=== PATIENT | female | born 1985 | race Caucasian/White ===

== ENCOUNTER 2023-10-23 06:11 | Day surgery (SDC) | payer OTHER, SELFPAY ==
[2023-10-23 06:22] VITALS: BP 102/74; PULSE 65; RESP 16; TEMP 36.8; O2SAT 99
[2023-10-23] MEDS: Acetaminophen 500 MG TAB 1000 MG PO (06:36)
[2023-10-23] MEDS: Lactated Ringers 1,000 ML 80 ML IV (06:58)
--- NOTE | 2023-10-23 07:01 | W.ANESPRE ---
General Info Date of Service Date Performed: 10/23/23 Height: 5 ft 6 in Weight: 65.7 kg Body Mass Index (BMI): 23.3 Surgical Procedure: Operation Date: 10/23/23 07:40 Proposed Procedure Side Surgeon p Wrist ECTR Left Seun Alfaro MD Pre-Op Diagnosis Post-Op Diagnosis (1) Left hand paresthesia (2) Left carpal tunnel syndrome Meds Allergies and Home Medications Allergies Allergy/AdvReac Type Severity Reaction Status Date / Time Sulfa (Sulfonamide Allergy Severe Anaphylaxis Verified 10/23/23 06:21 Antibiotics) clonazepam Allergy Unknown Other (See Verified 10/23/23 06:21 Comment) darunavir Allergy Unknown Other (See Verified 10/23/23 06:21 Comment) ondansetron [From Zofran] Allergy Unknown Other (See Verified 10/23/23 06:21 Comment) Home Medication Medication Instructions Recorded acetaminophen 325 mg tablet 325 mg PO ONCE PRN 04/24/23 ibuprofen 400 mg tablet 400 mg PO Q8H PRN 04/24/23 magnesium oxide 420 mg tablet 420 mg PO DAILY 04/24/23 multivitamin 1 tab PO DAILY 04/24/23 baclofen 10 mg tablet 10 mg PO BID PRN 05/21/23 Current Visit Medications: Current Medications Generic Name Dose Route Start Last Admin Trade Name Freq PRN Reason Stop Dose Admin Acetaminophen 1,000 mg 10/23/23 06:00 10/23/23 06:36 Acetaminophen 500 Mg Tab PO 11/21/23 23:59 1,000 mg PREOP GRACE Administration Ringer's Solution 1,000 mls @ 80 mls/hr 10/23/23 06:00 10/23/23 06:58 IV 11/21/23 23:59 80 mls/hr INFUSION GRACE Administration Cefazolin Sodium/Dextrose 2 gm in 50 mls @ 100 mls/hr 10/23/23 06:00 Ancef Duplex IVPB 11/21/23 23:59 PREOP GRACE IV Miscellaneous Supplies 1 each 10/23/23 06:00 Iv Access IV 11/21/23 23:59 DIRECTED GRACE Sodium Chloride 0 ml 10/23/23 06:00 Normal Saline Flush 10 Ml Syr IV 11/21/23 23:59 PRN PRN Sodium Chloride 0 ml 10/23/23 06:00 Normal Saline 10 Ml Vial IJ 11/21/23 23:59 DIRECTED PRN Sterile Water 0 ml 10/23/23 06:00 Water,Injection,Sterile 10 Ml Vial IJ 11/21/23 23:59 DIRECTED PRN PFSH Active Problems Active Problems: Problem Status Onset Code Left carpal tunnel syndrome G56.02 Left hand paresthesia R20.2 H/O breast augmentation Z98.82 Hx of appendectomy Z90.49 H/O: hysterectomy Z90.710 H/O partial nephrectomy Z90.5 History of carpal tunnel surgery of right wrist Z98.890 Medical History Medical History Comments:: Pt. states she typically runs a little low on BP and Surgical History Surgical History (Updated 10/22/23 @ 09:53 by Quoc Martin) History of carpal tunnel repair Tobacco Smoking/Tobacco Use Status: Former Tobacco Use Alcohol Alcohol Intake: current Alcohol intake frequency: a few times a week Substance Use Substance use: Never Substance use type: does not use Vital Signs and Lab Results Vital Signs Most Recent Vital Signs in EMR: Most Recent Vital Signs Temp Pulse Resp BP Pulse Ox 36.8 C 65 16 102/74 99 10/23/23 06:22 10/23/23 06:22 10/23/23 06:22 10/23/23 06:22 10/23/23 06:22 Lab Results Blood Type / Crossmatch: No Data to Display Complete Blood Count: No Data to Display Complete Metabolic Panel: No Data to Display Liver Function Panel: No Data to Display Coagulation Panel: No Data to Display Cardiac Panel: No Data to Display Arterial Blood Gas: No Data to Display Venous Blood Gas: No Data to Display Pancreas Panel: No Data to Display Thyroid Panel: No Data to Display Infectious Disease: No Data to Display Blood Cultures: No Data to Display Toxicology Panel: No Data to Display Panel: No Data to Display Anesthesia Assessment and Plan Anesthesia History Personal History: No History of Anesthesia Complications Family History: No Family History of Anesthesia Complications Exercise Tolerance Exercise Tolerance: Metabolic Equivalents>4 Pertinent Negatives Pertinent Negatives: No Symptoms of GERD, No Major Cardiovascular Symptoms or Complaints and No Major Pulmonary Symptoms or Complaints Cardiac & Pulmonary Exam Cardiac Exam: Normal S1/S2 Heart Sounds Pulmonary Exam: Clear Bilateral Breath Sounds Cardiac and Pulmonary Comment:: Low BP and pulse normal for patient Implantable Cardiac Device Does patient have a Pacemaker or an ICD?: No Airway Exam Known Difficult Airway: No Mallampati Class: 2 Mouth Opening: Normal (> 3cm) Thyromental Distance: Greater than 3 cm Neck Range of Motion: Full ROM Neck Circumference: Normal Teeth Condition: Normal Dentition ASA Classification ASA Score: ASA 2 Emergency Case?: No NPO Status NPO Status: NPO Clears >2 hours, Solids >8 hours Status Status: History of Hysterectomy Anesthesia Plan Resuscitation Status: Full Code Anesthesia Technique: General Anesthesia Airway Planned: Natural Airway Monitors Used: Standard Monitors Preoperative Comments:: S/P partial nephrectomy
[2023-10-23 07:05] VITALS: BMI 23.3
--- NOTE | 2023-10-23 07:13 | W.PM.DSUDISC ---
Date of service: 10/23/23 Time of Service: 07:13 Discharge Plan Disposition Patient Disposition: Home Condition: Good Discharge Details Reason For Visit: L ECTR Attending Provider: Seun Alfaro Home Meds and New Rx's Prescriptions: New acetaminophen 500 mg tablet 1,000 mg PO TID Qty: 90 0RF ibuprofen 600 mg tablet 600 mg PO TID PRN (Reason: pain) Qty: 90 0RF Continued multivitamin Tablet 1 tab PO DAILY magnesium oxide 420 mg tablet 420 mg PO DAILY baclofen 10 mg tablet 10 mg PO BID PRN Discontinued ibuprofen 400 mg tablet 400 mg PO Q8H PRN acetaminophen 325 mg tablet 325 mg PO ONCE PRN Discharge Instructions Stand Alone Forms: Angelina Molina Tunnel Release Activity:: Activity as Tolerated Remove Dressings/Wound Care:: 48 hours Shower/Bathe:: 48 hours Diet:: As Tolerated Discharge Orders Discharge Orders: Discharge Order (Routine); Ordered 10/23/23 Ordered By: Jp Earl DS: Diagnosis Discharge Diagnosis (1) Left carpal tunnel syndrome: Status: Acute
--- NOTE | 2023-10-23 07:21 | W.PREOPHP ---
Assessment and Plan Assessment and plan (1) Left carpal tunnel syndrome: Status: Acute Assessment and plan: Farhana is a 38-year-old female who has ongoing numbness and tingling the left hand, deemed to be electro negative carpal tunnel syndrome. I reviewed the surgery with her today. She did have a carpal tunnel lease on the right side and did well from this. I discussed the technical details of carpal tunnel release and that I perform an endoscopic release, but would make a larger, open, incision if necessary for visualization. I discussed the risks of the procedure to include, but not limited to, bleeding, infection, palmar pain, stiffness, damage to nerves, damage to vessels, damage to tendons, weakness, recurrence, and incomplete release. Given these risks, Farhana desires to proceed. History of Present Illness History of Present Illness Chief Complaint: Left carpal tunnel syndrome Narrative: Farhana is a 38-year-old female who continues to have numbness and tingling and pain about the left hand. She has some atypical symptoms. However, the symptoms are similar to the right side for which she underwent a carpal tunnel release and did well from. Given the persistence of the numbness, tingling, pain she is here today for left carpal tunnel release. She denies any recent health changes. No chest pain or shortness of breath. No recent illnesses. Review of Systems All systems reviewed & are unremarkable except as noted in HPI and below PFSH All Active Problems Left carpal tunnel syndrome (Acute) S/P ECTR: 10/23/2023 Left hand paresthesia (Acute) H/O breast augmentation (Acute) Hx of appendectomy (Chronic) H/O: hysterectomy (Chronic) H/O partial nephrectomy (Acute) History of carpal tunnel surgery of right wrist (Acute) Surgical History History of carpal tunnel repair Social History Smoking/Tobacco Use Status: Former Tobacco Use Quit Date: 04/29/03 Smoking risk assessment performed?: Yes Alcohol Intake: current Alcohol Intake frequency: a few times a week Drug use: Never Substance use type: does not use Housing: other Do you feel safe at home: Yes Do you feel safe in your relationship?: Yes Meds Allergies and Home Medications Allergies Allergy/AdvReac Type Severity Reaction Status Date / Time Sulfa (Sulfonamide Allergy Severe Anaphylaxis Verified 10/23/23 06:21 Antibiotics) clonazepam AdvReac Unknown Pt. states Verified 10/23/23 07:17 it puts me out ondansetron [From Zofran] AdvReac Unknown Per pt. Verified 10/23/23 07:17 states I don't like it it messes with my stomach Home Medications Medication Instructions Recorded Confirmed Type magnesium oxide 420 mg tablet 420 mg PO DAILY 04/24/23 10/23/23 History multivitamin 1 tab PO DAILY 04/24/23 10/23/23 History baclofen 10 mg tablet 10 mg PO BID PRN 05/21/23 10/22/23 History acetaminophen 500 mg tablet 1,000 mg (2 x 500 mg) PO TID #90 10/23/23 Rx tabs ibuprofen 600 mg tablet 600 mg PO TID PRN pain #90 tabs 10/23/23 Rx Exam Const General: cooperative, healthy appearing, comfortable and no acute distress Resp Auscultation: clear to auscultation bilaterally Cardio Rate: regular rate Rhythm: regular rhythm Results Last Vital Signs Temp 36.8 C 10/23/23 06:22 Pulse 65 10/23/23 06:22 Resp 16 10/23/23 06:22 BP 102/74 10/23/23 06:22 Pulse Ox 99 10/23/23 06:22
[2023-10-23] MEDS: ceFAZolin 2 GM/50 ML BAG IVPB (07:27)
[2023-10-23] MEDS: Lidocaine 1% Multi-Dose W/EPI 1/100,000 50 ML VIAL (07:41)
[2023-10-23 07:48] VITALS: BP 105/74; PULSE 68; RESP 16; TEMP 36.6; O2SAT 96
[2023-10-23 08:19] VITALS: BP 102/68; PULSE 58; RESP 16; TEMP 36.4; O2SAT 100
--- NOTE | 2023-10-23 08:45 | W.ANESPOSTOP ---
Postoperative Evaluation Date, Time and Location Date Performed: 10/23/23 Time Performed: 08:10 Patient Location: Day Surgery Unit Vital Signs Most Recent Imported Vital Signs: Most Recent Vital Signs Temp Pulse Resp BP Pulse Ox 36.4 C L 58 L 16 102/68 100 10/23/23 08:19 10/23/23 08:19 10/23/23 08:19 10/23/23 08:19 10/23/23 08:19 Pain Score Most Recent Pain Score: Most Recent Pain Score Pain Level 0 10/23/23 08:19 Assessment Mental Status: Awake (Alert & Oriented to Patient Baseline) Airway and Respiratory Function: Patent airway with normal (patient baseline) respiratory exam Cardiovascular Function: Hemodynamically Stable Hydration Status: Adequately Hydrated Nausea & Vomiting: No Nausea or Vomiting Pain: Pt. Denies Any Pain Peripheral Nerve Block: Patient did not receive a nerve block
--- NOTE | 2023-10-23 12:05 | W.PM.OP ---
Date of service: 10/23/23 Time of Service: 07:30 Operative Note Operative Note DATE OF PROCEDURE: 10/23/23 PRE-OP DIAGNOSIS: Left Carpal Tunnel Syndrome POST-OP DIAGNOSIS: same PROCEDURE: Left Endoscopic Carpal Tunnel Release SURGEON: Seun Alfaro ANESTHESIA TYPE: General:No Airway Refer to Anesthesia Record ESTIMATED BLOOD LOSS: 0 PATHOLOGY: none sent TOURNIQUET TIME: 5 COMPLICATIONS: None Patient was transported to: same day Patient's condition: stable Indications: I have seen Farhana in clinic for symptoms of carpal tunnel syndrome. The numbness, tingling, and pain limited function. Clinical exam findings confirmed the diagnosis of carpal tunnel syndrome. Nonoperative measures such as bracing, time, activity modifications had been tried but disability and pain persisted. I discussed carpal tunnel release with the patient. I reviewed the risks of the procedure to include, but not limited to, bleeding, infection, pain, stiffness, incomplete release, damage to nerves or vessels, persistent numbness, recurrence. Despite these risks, the patient elected to proceed. Findings: There was tightened carpal tunnel and a thickened transverse carpal ligament. This was dilated and released successfully with the endoscopic with increased space within the tunnel. The antebrachial fascia was released proximally freeing the median nerve at the wrist. Procedure Description: Farhana was greeted in the preoperative holding area where the correct side was identified and marked. The consent was reviewed with the patient and signed. The history and physical was updated. All questions were answered. She was taken back to the operating room. The patient was placed into the supine position on the operating room table with the left arm on an arm board. A nonsterile tourniquet was placed high onto the arm. All bony prominences were well padded. Prophylactic antibiotics in the form of Cefazolin were administered. The left arm was then prepped with Chloraprep and draped in a standard fashion with stockinette and extremity drape. A timeout to confirm correct identity, side and site, procedure, allergies, anesthesia, and medical concerns was performed. The surgical site was marked in the volar wrist creases in line with the radial border of the fourth ray. This area was anesthetized with approximately 6cc of 1% Lidocaine. The limb was then exsanguinated with an Esmarch. The skin was incised with a 15 blade, approximately 1cm. The skin only was cut and the deeper tissue was dissected bluntly with a tenotomy scissor, avoiding passing nerve and venous structures. The fascia was penetrated and opened bluntly. A two-prong skin hook was placed under this proximal fascial edge. A series of hamate finders were used to identify and dilate the carpal tunnel. Synovial elevator was used to free synovial attachments to the underside of the transverse carpal ligament. My thumb was kept in the palm to samantha the distal extent of the carpal tunnel and correctly position the hand. The [employer] endoscope was inserted without difficulty and without resistance. Excellent visualization showed horizontally running fibers of the transverse carpal ligament (TCL). The distal extent of the TCL was visualized and the end of the scope palpated with the thumb. The blade was elevated and withdrawn from distal to proximal. The TCL was split into two flaps. The endoscope was reinserted to confirm complete release and any remnant ligament was incised. The scope was withdrawn and the proximal aspect of the carpal tunnel was grossly inspected and appeared release with the median nerve visible. The antebrachial fascia at the level of the wrist was then freed from the overlying skin and then the underlying median nerve with blunt dissection. This was transected longitudinally for about 3cm proximal to the wrist incision. The wound was then irrigated with easy flow of irrigant distally and proximally. The incision was closed with a single 4-0 Nylon suture. The wound was dressed with Xeroform, Gauze, Kerlix and Edin. The tourniquet was deflated with the initial dressing and held with some pressure. Blood flow returned easily to all digits with capillary refill less than 2 seconds. The patient tolerated the procedure well and was returned to the Same Day Surgery area in a stable condition suffering no known complication.
== END 2023-10-23 08:32 | disposition home or self-care (01) ==
PROVIDERS: Visit Provider Student in an Organized Health Care Education/Training Program
PROC: 01N54ZZ Release Median Nerve, Percutaneous Endoscopic Approach (ICD-10-PCS; CPT 29848; principal; 2023-10-23 07:30)
DX: G56.02 Carpal tunnel syndrome, left upper limb (principal); R20.2 Paresthesia of skin
CPT/HCPCS: 29848; J0690; J1596; J1885; J2001; J2004; J2250; J2704